=== PATIENT | male | born 1960 | race Caucasian/White ===

== ENCOUNTER 2023-12-04 11:34 | Emergency (ER) | payer BC, SELFPAY ==
[2023-12-04 11:40] VITALS: BP 152/102
[2023-12-04 12:04] LABS: % Basophils 1.1 % (0-2); % Eosinophils 4.1 % (0-6); % Immature Granulocytes 0.2 % (0-0.5); % Lymphocytes 18.8 % (20.5-51.1); % Neutrophils 69.8 % (42.2-75.2); Absolute Basophils 0.1 10^3/uL (0-0.2); Absolute Eosinophils 0.4 10^3/uL (0-0.7); Absolute Lymphocytes 1.6 10^3/uL (1.2-3.4); Absolute Monocytes 0.5 10^3/uL (0.1-0.6); Absolute Neutrophils 5.9 10^3/uL (1.4-6.5); Hematocrit 42.9 % (39.0-52.0); Mean Corpuscular Hgb 31.5 pg (27.0-31.0); Mean Corpuscular Volume 90.1 fL (80.0-94.0); Mean Platelet Volume 10.4 fL (7.4-10.4); Nucleated Red Blood Cells % 0 % (-); Platelet Count 284 10^3/uL (130-400); Red Blood Cell Count 4.76 10^6/uL (4.70-6.10); Red Cell Dist. Width 11.6 % (11.5-14.5); White Blood Cell Count 8.5 10^3/uL (4.8-10.8)
[2023-12-04 12:08] LABS: INR 1.03; PT 13.3 Sec (11.4-14.6)
[2023-12-04 12:09] LABS: APTT 27.2 Sec (23.4-35.0)
[2023-12-04 12:26] LABS: ALT (SGPT) 27 U/L (0-50); AST (SGOT) 26 U/L (17-59); Albumin 4.9 g/dl (3.5-5.0); Alkaline Phosphatase 43 U/L (38-126); Blood Urea Nitrogen 20 mg/dl (9-20); Calcium 9.9 mg/dl (8.4-10.2); Carbon Dioxide 26 mmol/L (22-30); Chloride 104 mmol/L (98-107); Glucose 111 mg/dl (70-99); Potassium 4.5 mmol/L (3.5-5.1); Sodium 142 mmol/L (135-145); Total Bilirubin 0.4 mg/dl (0.2-1.3); Total Protein 7.3 g/dl (6.3-8.2); eGFR > 60.00
--- NOTE | 2023-12-04 12:36 | ED.GENMED ---
History of Present Illness
General
Chief Complaint: Nose Bleed
Source: patient
Exam Limitations: none
Time Seen by Provider: 12/04/23 12:34
Nursing documentation reviewed up to this point in time: agreed with
History of Present Illness
History of Present Illness:
Patient is a 63-year-old male with past medical history of TIA sinus surgery presents to the ER for nosebleed from right nostril intermittently for the past 3 days. Patient reports he had sinus surgery due to chronic sinusitis November 03 in
[facility]. He lives between here in [place].
He reports he started to have intermittent nosebleeds from his right nares off and on for the past 3 days. He is on aspirin no other blood thinners.
Past History
Past History
ED Past Medical History: None
ED Past Surgical History: None
Patient has exhibited threatening behavior?: No
PSI?: No
Review of Systems
Review of Systems
Allergies reviewed?: Yes
All Other Systems: ROS reviewed and negative except as documented in HPI and ROS
Constitutional: Reports no symptoms
EENT: Reports other (Right sided nosebleed)
Phy Exam
General Physical Exam
General Presentation: no apparent distress
General age: appears stated age
General Skin: warm and dry
General Habitus: normal
General Mental: alert
General Hydration: appears well hydrated
ENT Exam
ENT Exam: other (right sided nose bleed )
Neurological Exam
Neurological Exam: alert and oriented x3
Musculoskeletal Exam
Musculoskeletal Exam: full ROM
Skin Exam
Skin Exam: normal color and warm/dry
Psychiatric Exam
Psychiatric Exam: normal mood/affect
Course
Orders/Labs/Results
Orders:
Orders
12/04/23 11:51
Complete Blood Count/With Diff Urgent
Comprehensive Metabolic Panel Urgent
PTT Urgent
Prothrombin Time Urgent
12/04/23 14:32
Ondansetron Orally Disint [Zofran Odt (Orally Disintegrating)] 4 mg .ROUTE .STK-MED ONE
12/04/23 14:34
Ondansetron Orally Disint [Zofran Odt (Orally Disintegrating)] 4 mg PO NOW STA
Abnormal Lab Results
12/04/23
11:51
MCH 31.5 H pg
(27.0-31.0)
Lymphocytes % 18.8 L %
(20.5-51.1)
Glucose 111 H mg/dl
(70-99)
12/04/23 11:51
12/04/23 11:51
Vital Signs
Initial and Last Documented VS:
Initial Vital Signs
Temp Pulse Resp BP Pulse Ox
97.8 F 85 16 152/102 98
12/04/23 11:40 12/04/23 11:40 12/04/23 11:40 12/04/23 11:40 12/04/23 11:40
Last Documented Vital Signs
Temp Pulse Resp BP Pulse Ox
97.8 F 78 16 125/78 100
12/04/23 11:40 12/04/23 12:37 12/04/23 12:37 12/04/23 14:00 12/04/23 12:37
Procedures
Nosebleed
Drug treatment: Epinephrine
Treatment: Merocel packing and other (rapid rhino )
Post treatment bleeding: other (ENT follow up )
MDM/Problems Addressed
Differential Diagnosis Includes:
Not limited to epistaxis, less likely anemia
MDM/Problems Addressed:
Patient is a 63 male who presented with nosebleed off and on for the past 3 days. He did have sinus surgery for chronic sinusitis November 03 in [place]. He denies any recent fever or chills. He is on aspirin no other blood thinners. He
presents awake alert no acute distress with active nosebleed from the right nares. Hemoglobin stable. Initially I did try to use Merocel packing however patient bled through and rapid Rhino was used and bleeding resolved.
Will DC with ENT follow-up packing removal on Thursday. Will give antibiotics for the next 5 days. Will DC with antibiotics X5 days.
*Critical Care Note
Total Time (30-74mins, 75-104mins- exclusive of procedures): Not Applicable
ED Attending Note
-
Portions of this chart may have been created with voice recognition software.� Occasional wrong word or��sound alike� substitutions may have occurred due to the inherent limitations of voice recognition software.
Discharge Plan
Departure
Patient Disposition: Home (Routine Discharge)
Date of Disposition: 12/04/23
Time of Disposition: 14:44
Patient with high blood pressure during this ER visit?: Yes
Condition: Fair
Covid-19: Not Applicable
Discharge Problem:
Acute anterior epistaxis
Instructions: Nosebleeds (DC), BLOOD PRESSURE
Prescriptions:
New
amoxicillin-pot clavulanate 875-125 mg tablet
1 tab PO BID Qty: 10 0RF
No Action
Probiotic
1 tab PO DAILY
rosuvastatin 10 mg Tablet
20 mg PO DAILY Qty: 30 1RF
aspirin 81 mg Tablet,Chewable
81 mg PO DAILY Qty: 100 0RF
clopidogrel 75 mg Tablet
75 mg PO DAILY Qty: 21 0RF
Referrals:
Shane Oscar MD [Family Provider] -
Cassius Kelley MD [Active] -
Activity Restrictions/Additional Instructions:
As discussed keep packing in place until you are seen by ENT. Please call ear nose and throat office today to schedule an appointment for Thursday to have packing removal.
Antibiotic was sent to pharmacy.
take as directed for the next 5 days to prevent infection
return if any worsening of symptoms.
Interventions
Interventions:
*Risk Screen - Suicide Last Done: 12/04/23 11:40
*General Assessment Last Done: 12/04/23 11:40
*Neglect/Abuse Screening Last Done: 12/04/23 11:40
ED-EENT Assessment Last Done: 12/04/23 12:09
Discharge Date and Time
Print Language: CHINESE
[2023-12-04 12:37] VITALS: BP 175/100
[2023-12-04 13:44] VITALS: BP 125/78
[2023-12-04 14:00] VITALS: BP 125/78
[2023-12-04] MEDS: ZOFRAN ODT (ORALLY DISINTEGRATING) 4 MG PO (14:34)
== END 2023-12-04 15:18 | disposition home or self-care (01) ==
LOC: EMR 11:34
PROVIDERS: Emergency Medicine; EMERGENCY PHYSICIAN Student in an Organized Health Care Education/Training Program; FAMILY PHYSICIAN Family Medicine
DX: R04.0 Epistaxis (principal); Z79.82 Long term (current) use of aspirin; Z86.73 Personal history of transient ischemic attack (TIA), and cerebral infarction without residual deficits
CPT/HCPCS: 30901; 99283; 80053; 85025; 85610; 85730

== ENCOUNTER 2023-12-04 16:49 | Emergency (ER) | payer BC, SELFPAY ==
[2023-12-04 17:05] VITALS: BP 121/86
--- NOTE | 2023-12-04 17:13 | ED.GENMED ---
History of Present Illness
<BREA Dawson - Last Filed: 12/04/23 19:20>
General
Chief Complaint: Nose Bleed
Source: patient
Exam Limitations: none
Time Seen by Provider: 12/04/23 17:13
Nursing documentation reviewed up to this point in time: agreed with
History of Present Illness
History of Present Illness:
Patient is a 63-year-old male that was seen here earlier today for nosebleed and had a rapid Rhino inserted in his right nostril. I was the provider that saw him. He presents back with bleeding now from his left nares and additional bleeding
despite rapid Rhino. He denies any lightheaded dizziness.
Past History
<BREA Dawson - Last Filed: 12/04/23 19:20>
Past History
ED Past Medical History: None
ED Past Surgical History: None
Patient has exhibited threatening behavior?: No
PSI?: No
Review of Systems
<BREA Dawson - Last Filed: 12/04/23 19:20>
Review of Systems
Allergies reviewed?: Yes
All Other Systems: ROS reviewed and negative except as documented in HPI and ROS
Constitutional: Reports no symptoms
EENT: Reports other (Bilateral nosebleed despite packing)
ABD/GI: Reports no symptoms; Denies abdominal pain, nausea or vomiting
Musculoskeletal: Reports no symptoms
Skin: Reports no symptoms
Psychiatric: Reports no symptoms
Phy Exam
<BREA Dawson - Last Filed: 12/04/23 19:20>
General Physical Exam
General Presentation: no apparent distress
General age: appears stated age
General Skin: warm and dry
General Habitus: normal
General Mental: alert
General Hydration: appears well hydrated
ENT Exam
ENT Exam: other (+ rapid rhino in place to right nares w/ oozing of blood , left nares + oozing )
Neurological Exam
Neurological Exam: alert
Musculoskeletal Exam
Musculoskeletal Exam: full ROM
Skin Exam
Skin Exam: normal color and warm/dry
Psychiatric Exam
Psychiatric Exam: normal mood/affect
Course
<BREA Dawson - Last Filed: 12/04/23 19:20>
Orders/Labs/Results
Orders:
Orders
12/04/23 17:28
Tranexamic Acid 500 mg INH NOW STA
12/04/23 18:48
Amoxicillin 875 mg/Clav 125 mg [Augmentin 875 mg/125 mg] 1 tablet PO NOW STA
12/04/23 18:54
Vital Signs- Treatment ONCE
Frequency: Once
Vital Signs
Initial and Last Documented VS:
Initial Vital Signs
Temp Pulse Resp BP Pulse Ox
97.5 F 115 18 121/86 96
12/04/23 17:05 12/04/23 17:05 12/04/23 17:05 12/04/23 17:05 12/04/23 17:05
Last Documented Vital Signs
Temp Pulse Resp BP Pulse Ox
97.5 F 116 22 106/53 98
12/04/23 17:05 12/04/23 21:38 12/04/23 21:38 12/04/23 21:38 12/04/23 21:38
Flake Miller Helper consulted with Physician
Flake Miller Helper consulted with physician?: Yes
Name of Physician Consulted: DR Ponce
<Jeannette Cooney NP - Last Filed: 12/04/23 22:55>
Orders/Labs/Results
Orders:
Orders
12/04/23 17:28
Tranexamic Acid 500 mg INH NOW STA
12/04/23 18:48
Amoxicillin 875 mg/Clav 125 mg [Augmentin 875 mg/125 mg] 1 tablet PO NOW STA
12/04/23 18:54
Vital Signs- Treatment ONCE
Frequency: Once
Vital Signs
Initial and Last Documented VS:
Initial Vital Signs
Temp Pulse Resp BP Pulse Ox
97.5 F 115 18 121/86 96
12/04/23 17:05 12/04/23 17:05 12/04/23 17:05 12/04/23 17:05 12/04/23 17:05
Last Documented Vital Signs
Temp Pulse Resp BP Pulse Ox
97.5 F 116 22 106/53 98
12/04/23 17:05 12/04/23 21:38 12/04/23 21:38 12/04/23 21:38 12/04/23 21:38
<BREA Dawson - Last Filed: 12/04/23 19:20>
MDM/Problems Addressed
MDM/Problems Addressed:
Patient as documented was seen here earlier today for epistaxis had a rapid Rhino however inserted to right nares however Complains of persistent bleeding. Patient denies any lightheadedness. Reviewed with ED attending. b/l nares were packed with
cottonballs soaked in tranexamic acid.
Patient was again packed with rapid Rhino. Patient was monitored here without any further bleeding.
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
Patient has previously instructed is to follow-up with ENT on Thursday and again to return if any worsening of symptoms
<Jeannette Cooney NP - Last Filed: 12/04/23 22:55>
MDM/Problems Addressed
MDM/Problems Addressed:
Patient as documented was seen here earlier today for epistaxis had a rapid Rhino however inserted to right nares however Complains of persistent bleeding. Patient denies any lightheadedness. Reviewed with ED attending. b/l nares were packed with
cottonballs soaked in tranexamic acid.
Patient was again packed with rapid Rhino. Patient was monitored here without any further bleeding.
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
Patient has previously instructed is to follow-up with ENT on Thursday and again to return if any worsening of symptoms
7:30 p.m.
RN ready to DC patient but bleeding recurred, bleeding down posterior pharynx, bleeding from left nostril (Rapid Rhino packing in right nostril).
Removed right nasal packing, pt blew nose and spit out significant amount of blood and clots.
Consulted ENT Dr. Interiano. Concern for posterior bleed.
Bleeding controlled with nose clamp
VSS
8:[address] Interiano [address].
Inserted a longer Rapid Rhino for posterior bleed with good control
Pt to f/u with him on Thursday (3 days)
<BREA Dawson - Last Filed: 12/04/23 19:20>
*Critical Care Note
Total Time (30-74mins, 75-104mins- exclusive of procedures): Not Applicable
ED Attending Note
<BREA Dawson - Last Filed: 12/04/23 19:20>
-
Portions of this chart may have been created with voice recognition software.� Occasional wrong word or��sound alike� substitutions may have occurred due to the inherent limitations of voice recognition software.
Discharge Plan
Departure
Patient Disposition: Home (Routine Discharge)
Date of Disposition: 12/04/23
Time of Disposition: 21:18
Patient with high blood pressure during this ER visit?: No
Condition: Fair
Discharge Problem:
Acute posterior epistaxis
Instructions: Nosebleeds (DC), BLOOD PRESSURE
Prescriptions:
No Action
Probiotic
1 tab PO DAILY
rosuvastatin 10 mg Tablet
20 mg PO DAILY Qty: 30 1RF
aspirin 81 mg Tablet,Chewable
81 mg PO DAILY Qty: 100 0RF
clopidogrel 75 mg Tablet
75 mg PO DAILY Qty: 21 0RF
amoxicillin-pot clavulanate 875-125 mg tablet
1 tab PO BID Qty: 10 0RF
Referrals:
Higinio Interiano MD [Active] - Keep scheduled appt
Shane Oscar MD [Family Provider] -
Cassius Kelley MD [Active] -
Activity Restrictions/Additional Instructions:
Follow-up with Dr. Interiano on Thursday as you discussed with him. You were given an antibiotic, Augmentin here tonight. Pick your prescription up tomorrow and take as directed.
Interventions
Interventions:
*Risk Screen - Suicide Last Done: 12/04/23 19:03
*General Assessment Last Done: 12/04/23 19:03
*Neglect/Abuse Screening Last Done: 12/04/23 19:03
*Nursing Disposition Last Done: 12/04/23 21:38
ED-EENT Assessment Last Done: 12/04/23 17:34
Discharge Date and Time
Discharge Date/Time: 12/04/23 21:39
Print Language: PARAGUAYAN
[2023-12-04] MEDS: TRANEXAMIC ACID 500 MG INH (18:14)
[2023-12-04 19:04] VITALS: BP 102/75
[2023-12-04] MEDS: AUGMENTIN 875 MG/125 MG 1 TABLET PO (19:08)
[2023-12-04 19:58] VITALS: BP 103/77
--- NOTE | 2023-12-04 21:05 | CON.MD ---
Consultation - Medical
-
dictated.
R posterior epistaxis, controlled with packing.
dc to home, will remove packing 12/06, abx coverage until then, pt will hold ASA (was allowed to hold for 1 week for surgery)
[2023-12-04 21:38] VITALS: BP 106/53
== END 2023-12-04 21:39 | disposition home or self-care (01) ==
LOC: EMR 16:49
PROVIDERS: EMERGENCY PHYSICIAN Emergency Medicine; FAMILY PHYSICIAN Family Medicine; OTHER PHYSICIAN Otolaryngology
DX: R04.0 Epistaxis (principal); Z86.73 Personal history of transient ischemic attack (TIA), and cerebral infarction without residual deficits; Z79.82 Long term (current) use of aspirin
CPT/HCPCS: 30906; 94640; 99284

== ENCOUNTER → 2024-05-06 12:43 | Outpatient (REF) | payer BC, SELFPAY | LOC: RCS 12:43 | PROVIDERS: ATTENDING PHYSICIAN Nurse Practitioner Acute Care; FAMILY PHYSICIAN Family Medicine | DX: R06.09 Other forms of dyspnea (principal) | CPT/HCPCS: 93017; 93350; Q9957 ==